=== PATIENT | male | born 1980 | race Caucasian/White ===

== ENCOUNTER 2017-01-02 12:36 | Emergency (ER) | payer BC | END 2017-01-02 12:51 | disposition home or self-care (01) | LOC: CFTX 12:36 | DX: I77.6 Arteritis, unspecified (principal); S40.861A Insect bite (nonvenomous) of right upper arm, initial encounter; W57.XXXA Bitten or stung by nonvenomous insect and other nonvenomous arthropods, initial encounter | CPT/HCPCS: 96372; 99283; J0696 ==

== ENCOUNTER 2017-01-09 11:54 | Emergency (ER) | payer BC | END 2017-01-09 12:20 | disposition home or self-care (01) | LOC: CFTX 11:54 | DX: L23.9 Allergic contact dermatitis, unspecified cause (principal); Z88.8 Allergy status to other drugs, medicaments and biological substances | CPT/HCPCS: 99282 ==

== ENCOUNTER 2017-05-24 17:38 | Emergency (ER) | payer BC ==
[~2017-05-24] VITALS: Ht 160 cm; Wt 52.6 kg
--- NOTE | ~2017-05-24 | CR72 ---
[facility] A Service of [facility] RADIOLOGY TEXT RESULTS PATIENT: HECTOR CAMPA LOCATION: [facility] : 76 UNIT #: [id number] AGE: [address]: Deniz Khan MD SEX: M ORDER DR: [id number] [facility] [address] [place], [place] [address] [id number] E MR#: [id number] Acc #: [id number] NAME: HECTOR CAMPA : 1980 SEX: M STUDY DATE/TIME: 05/24/2017 19:05 UNIT: [facility] ROOM: STUDY DESCRIPTION: CR Chest Single View Portable Attending Physician: Deniz Khan M.D. Ordering Physician: Deniz Khan M.D. Primary Care Physician: Gerald Bolden M.D. MEDICAL IMAGING REPORT This report is preliminary unless electronic signature is present EXAM Portable chest HISTORY Chest pain since yesterday with dizziness. COMPARISON STUDIES 01/28/2016. FINDINGS AP portable view of the chest obtained. Heart size and vascularity are normal. The lungs are clear. Bones are unremarkable. IMPRESSION No active disease. Dictated by... Shamir Hanley M.D. THIS IS AN ELECTRONICALLY VERIFIED REPORT Shamir Hanley M.D. at 05/25/2017 7:57 PM FEL/pcl TD: 05/25/2017 16:10 JOB #: [id number] MEDICAL IMAGING REPORT Page 1 of 1 COPY
--- NOTE | ~2017-05-24 | EKG ---
PATIENT: HECTOR CAMPA UNIT #: [id number] Ventricular Rate: 61 BPM Atrial Rate: 61 BPM P-R Interval: 120 ms QRS Duration: 88 ms Q-T Interval: 374 ms QTC Calculation(Bezet): 376 ms P Harleigh: 32 degrees Calculated R Harleigh: 58 degrees Calculated T Harleigh: 60 degrees Diagnosis Line: Normal sinus rhythm Diagnosis Line: Poor R wave progression questionable lead position Diagnosis Line: or body habitus Early repolarization Otherwise Diagnosis Line: normal ECG Diagnosis Line: When compared with ECG of 31-OCT-2016 08:14, Diagnosis Line: Septal infarct is now Present Diagnosis Line: Confirmed by KIRILL VINCENT MD ([id number]) on 05/26/2017 Diagnosis Line: 11:01:57 PM INTERPRETING MD: MELISA ESPINOZA
[2017-05-24 18:18] LABS: BASOPHIL# 0.1 X10e3 (0-0.3); BASOPHIL% 1.5 % (0-2.5); DIFF IND NO; EOSINOPHIL% 0.7 % (0.0-7.0); HEMATOCRIT 44.2 % (38.0-50.0); HEMOGLOBIN 15.6 gm/dL (13.0-16.0); LYMPHOCYTE# 1.4 X10e3 (1.0-3.5); LYMPHOCYTE% 25.3 % (17.0-45.0); MEAN CELL VOLUME 89.4 FL (83-96); MEAN CORPUSCULAR HEMOGLOBIN 31.6 PG (28-34); MEAN CORPUSCULAR HGB CONC 35.3 g/dL (30-36); MONOCYTE# 0.4 X10e3 (0-1.0); MONOCYTE% 7.9 % (3.0-12.0); NEUTROPHIL# 3.5 X10e3 (1.5-7.1); NEUTROPHIL% 64.6 % (40-75); PLATELET COUNT 205 X10e3 (140-420); RED BLOOD COUNT 4.95 X10e (3.90-5.60); RED CELL DISTRIBUTION WIDTH 12.9 % (11.0-15.5); WHITE BLOOD COUNT 5.4 X10e3 (4.0-10.5)
[2017-05-24 18:42] LABS: ALBUMIN SERUM 4.5 g/dL (3.5-5.0); BILIRUBIN, DIRECT 0.1 mg/dL (0.0-0.2); BILIRUBIN,INDIRECT 0.9 mg/dL (0.0-0.9); CALCIUM SERUM 9.3 mg/dL (8.4-10.2); GLOM FILT RATE Estimated 94.4 mL/min (>60); POTASSIUM 4.2 mmol/L (3.5-5.1); PROTEIN TOTAL SERUM 7.1 g/dL (6.0-8.3)
[2017-05-24 19:55] LABS: URINE SOURCE CLEAN CATCH
[2017-05-24 20:00] LABS: URINE APPEARANCE CLEAR; URINE BILIRUBIN NEG (NEG); URINE BLOOD NEG (NEG); URINE COLOR YELLOW; URINE GLUCOSE NEG (NEG); URINE KETONE NEG (NEG); URINE LEUKOCYTE ESTERASE NEG (NEG); URINE NITRATE NEG (NEG); URINE PROTEIN NEG (NEG); URINE SPECIFIC GRAVITY 1.012 (1.003-1.035)
[2017-05-24 20:11] LABS: CULTURE INDICATED? NO
[2017-05-24 20:12] LABS: POC - CKMB <1.0 ng/mL (0.0-7.9); POC - TROPONIN <0.05 ng/mL (<=0.05)
[2017-05-24 20:15] LABS: POC - CKMB <1.0 ng/mL (0.0-7.9); POC - TROPONIN <0.05 ng/mL (<=0.05)
== END 2017-05-24 20:47 | disposition home or self-care (01) ==
LOC: CED 17:38
PROVIDERS: Emergency Medicine
DX: R07.9 Chest pain, unspecified (principal); Z88.8 Allergy status to other drugs, medicaments and biological substances
CPT/HCPCS: 36415; 71010; 80048; 80076; 81003; 82553; 84484; 85025; 85379; 93005; 99285